=== PATIENT | male | born 1955 | race Caucasian/White ===

== ENCOUNTER → 2023-07-12 14:29 | Outpatient (CLI) | payer OTHER, SELFPAY ==
--- NOTE | 2023-07-12 | DI.US.S_ITS ---
PROCEDURE: US PERIPH VENOUS UP EXTREM LT INDICATIONS: LEFT ARM SWELLING TECHNIQUE: Real-time imaging, as well as color and pulse Doppler interrogation, was performed of the left upper extremity deep veins from the inferior neck to the antecubital fossa. COMPARISON: None. FINDINGS: The internal jugular vein, visualized portions of the subclavian vein, axillary, and brachial veins are free of intraluminal thrombus. Where physically possible, the veins are normally compressible. Color and pulse Doppler demonstrate normal intraluminal flow, with expected phasicity and pulsatility. Additional scanning of the cephalic and basilic veins of the superficial system demonstrate normal compressibility, without thrombus. IMPRESSION: No left-sided DVT at the upper extremity. Dictated by: Alek Ba M.D. on 07/12/2023 at 16:19 Approved by: Alek Ba M.D. on 07/12/2023 at 16:19
== END ==
PROVIDERS: Referring Provider Orthopaedic Surgery; Visit Provider Orthopaedic Surgery
DX: M79.89 Other specified soft tissue disorders (principal)
CPT/HCPCS: 93971